=== PATIENT | male | born 1985 | race American Indian/Alaskan Native ===

== ENCOUNTER 2017-05-24 15:14 | Emergency (ER) | payer SELFPAY ==
[2017-05-24 15:41] VITALS: BP 132/86
[2017-05-24] MEDS ORDERED: Sulfamethoxazole/Trimethoprim 800-160 MG Tab PO ONE (15:46)
--- NOTE | 2017-05-25 03:23 | ER ---
DATE SEEN: 05/24/2017 CHIEF COMPLAINT: Rash. HISTORY OF PRESENT ILLNESS: This is a 31-year-old male complaining of rash that has been there for couple of weeks. Itchy worse at night involving the arms and buttock area as well. Also 2 days ago, he fell and landed on the buttock, complains of back pain. REVIEW OF SYSTEMS: No weakness of the legs. No fever. No chest pain. MEDICATIONS: Please see the nurse's notes. ALLERGIES: Please see the nurse's notes. PHYSICAL EXAMINATION: VITAL SIGNS: Blood pressure is normal, pulse is 101, and temperature 97.7. SKIN: There are multiple excoriation velásquez, rough erythematous rash diffusely noted on the arms, buttock, and legs. There are also some furuncles noted on the left leg and also in the buttock area. Low back, no obvious swelling or deformity. There is tenderness on the paraspinal muscles on the left side. Gait and station are normal. IMPRESSION: 1. Back sprain. 2. Scabies with secondary bacterial infection. PLAN: 1. Tylenol, ibuprofen for back pain. 2. Permethrin cream to apply and wash off after 8 to 12 hours. 3. Bactrim DS 1 tablet b.i.d. for secondary infection. FOLLOWUP: In the office in 1 to 2 weeks. /[id number] GINO/LISBET
== END 2017-05-24 15:45 | disposition home or self-care (01) ==
LOC: FB.ED 15:14
DX: S33.8XXA Sprain of other parts of lumbar spine and pelvis, initial encounter (principal); B86 Scabies; X58.XXXA Exposure to other specified factors, initial encounter
CPT/HCPCS: 99283; A9270

== ENCOUNTER 2017-12-21 23:22 | Emergency (ER) | payer OTHER ==
--- NOTE | 2017-12-21 23:53 | EDM.PDOC ---
ED HPI GENERAL MEDICAL PROBLEM - General Chief Complaint: General Stated Complaint: TESTICLE PAIN Time Seen by Provider: 12/21/17 23:35 Source of Information: Reports: Patient History Limitations: Reports: No Limitations - History of Present Illness INITIAL COMMENTS - FREE TEXT/NARRATIVE: Edson was sitting watching TV this pm when he arose and experienced immediate onset of sharp unconsolable pain in the LLQ, worse into the L teste. Pain is positional, worse with palpation near the inguinal ligament. Pain persisted after attempting to self treat by "blasting" himself with methamphetamine, quantity unknown. He is Hep C positive by self report. Abdominal Pain Score (Numeric/FACES): 10 - Related Data Allergies Allergy/AdvReac Type Severity Reaction Status Date / Time No Known Allergies Allergy Verified 12/21/17 23:29 Home Meds: Home Meds NK [No Known Home Meds] 12/21/17 [History] Past Medical History - Infectious Disease History Infectious Disease History: Reports: Hepatitis C - Past Surgical History HEENT Surgical History: Reports: Oral Surgery Social & Family History - Tobacco Use Smoking Status *Q: Current Every Day Smoker Years of Tobacco use: 10 Packs/Tins Daily: 1 - Caffeine Use Caffeine Use: Reports: Coffee, Energy Drinks, Soda, Tea - Alcohol Use Days Per Week of Alcohol Use: 2 Number of Drinks Per Day: 12 Total Drinks Per Week: 24 - Recreational Drug Use Recreational Drug Use: No Recreational Drug Type: Reports: Marijuana/Hashish ED ROS GENERAL - Review of Systems Review Of Systems: See Below Constitutional: Reports: No Symptoms HEENT: Reports: No Symptoms Respiratory: Reports: No Symptoms Cardiovascular: Reports: No Symptoms Endocrine: Reports: No Symptoms GI/Abdominal: Reports: Abdominal Pain, Other (pain radiating into L teste) Musculoskeletal: Reports: No Symptoms Skin: Reports: No Symptoms Neurological: Reports: No Symptoms Psychiatric: Reports: No Symptoms Hematologic/Lymphatic: Reports: No Symptoms Immunologic: Reports: No Symptoms ED EXAM, GENERAL - Physical Exam Exam: See Below Exam Limited By: No Limitations General Appearance: Alert, WD/WN, Anxious, Moderate Distress Head: Normocephalic Neck: Normal Inspection, Supple, Non-Tender Respiratory/Chest: Lungs Clear, Normal Breath Sounds, Chest Non-Tender Cardiovascular: Regular Rate, Rhythm, No Murmur GI/Abdominal: Normal Bowel Sounds, Soft, No Organomegaly, No Distention, No Mass , Tender (LLQ near inguinal ligament) (Male) Exam: Normal Inspection, Other (L inguinal tenderness) Back Exam: Normal Inspection Extremities: Normal Inspection Neurological: Alert, Oriented, CN II-XII Intact, Normal Cognition, No Motor/ Sensory Deficits Psychiatric: Normal Affect, Anxious Skin Exam: Warm, Dry, Intact Lymphatic: No Adenopathy Course - Vital Signs Text/Narrative:: Following assessment in the [facility] ED, Toradol 60 mg IM was adminsitered; an Abd- Pelvic CT wo contrast confirmed a 3 mm stone at the L UV junction, with mild hydroureter; CBC noted Hgb 16.2 gm, WBC 19,200, plts normal; BMP noted K 3.4; UA noted lg blood, 40-50 RBCs/hpf; DS positive for meth, cannabis. Edson was markedly improved at time of discharge. Last Recorded V/S: Last Vital Signs Temp 34.2 C L 12/21/17 23:31 Pulse 67 12/21/17 23:31 Resp 18 12/21/17 23:31 BP 122/99 H 12/21/17 23:31 Pulse Ox 100 12/21/17 23:31 - Orders/Labs/Meds Orders: Active Orders 24 hr Category Date Time Status Abdomen Pelvis w Cont [CT] Stat Exams 12/21/17 23:55 Stop Req Abdomen Pelvis wo Cont [CT] Stat Exams 12/22/17 00:15 Taken DRUG SCREEN, URINE ALERE [URCHEM] Stat Lab 12/22/17 00:14 Ordered URINALYSIS W/MICROSCOPIC [UA W/MICROSCOPIC] [URIN] Stat Lab 12/22/17 00:14 Ordered Labs: Laboratory Tests 12/22/17 12/22/17 12/22/17 Range/Units 00:12 00:12 00:14 WBC 19.2 H (4.5-12.0) X10-3/uL RBC 5.27 (4.30-5.75) x10(6)uL Hgb 16.2 H (11.5-15.5) g/dL Hct 47.9 (30.0-51.3) % MCV 90.9 (80-96) fL MCH 30.8 (27.7-33.6) pg MCHC 33.8 (32.2-35.4) g/dL RDW 13.0 (11.5-15.5) % Plt Count 388 H (125-369) X10(3)uL MPV 7.6 (7.4-10.4) fL Add Manual Diff Yes Neutrophils % (Manual) 93 H (46-82) % Lymphocytes % (Manual) 4 L (13-37) % Monocytes % (Manual) 3 L (4-12) % Sodium 138 (135-145) mmol/L Potassium 3.4 L (3.5-5.3) mmol/L Chloride 100 (100-110) mmol/L Carbon Dioxide 26 (21-32) mmol/L BUN 16 (7-18) mg/dL Creatinine 1.3 (0.70-1.30) mg/dL Est Cr Clr Drug Dosing 89.54 mL/min Estimated GFR (MDRD) > 60 (>60) BUN/Creatinine Ratio 12.3 (9-20) Glucose 114 (80-116) mg/dL Calcium 9.6 (8.6-10.2) mg/dL Urine Color Yellow (YELLOW) Urine Appearance Slightly cloudy (CLEAR) Urine pH 7.0 H (5.0-6.5) Ur Specific [place] 1.015 (1.010-1.025) Urine Protein Negative (NEGATIVE) mg/dL Urine Glucose (UA) Normal (NEGATIVE) mg/dL Urine Ketones Negative (NEGATIVE) mg/dL Urine Occult Blood Large H (NEGATIVE) Urine Nitrite Negative (NEGATIVE) Urine Bilirubin Negative (NEGATIVE) Urine Urobilinogen 1 H (NEGATIVE) mg/dL Ur Leukocyte Esterase Negative (NEGATIVE) Urine RBC 40-50 H (0) Urine WBC 0-5 (0) Ur Squamous Epith Cells Rare (NS,R,O) Amorphous Sediment Few Urine Bacteria Few H (NS) Urine Mucus Few H (NS) Urine Opiates Screen (NEGATIVE) Ur Oxycodone Screen (NEGATIVE) Ur Propoxyphene Screen (NEGATIVE) Ur Barbituates Screen (NEGATIVE) Ur Tricyclics Screen (NEGATIVE) Ur Phencyclidine Scrn (NEGATIVE) Ur Amphetamine Screen (NEGATIVE) Urine MDMA Screen (NEGATIVE) U Benzodiazepines Scrn (NEGATIVE) U Cocaine Metab Screen (NEGATIVE) U Marijuana (THC) Screen (NEGATIVE) 12/22/17 Range/Units 00:14 WBC (4.5-12.0) X10-3/uL RBC (4.30-5.75) x10(6)uL Hgb (11.5-15.5) g/dL Hct (30.0-51.3) % MCV (80-96) fL MCH (27.7-33.6) pg MCHC (32.2-35.4) g/dL RDW (11.5-15.5) % Plt Count (125-369) X10(3)uL MPV (7.4-10.4) fL Add Manual Diff Neutrophils % (Manual) (46-82) % Lymphocytes % (Manual) (13-37) % Monocytes % (Manual) (4-12) % Sodium (135-145) mmol/L Potassium (3.5-5.3) mmol/L Chloride (100-110) mmol/L Carbon Dioxide (21-32) mmol/L BUN (7-18) mg/dL Creatinine (0.70-1.30) mg/dL Est Cr Clr Drug Dosing mL/min Estimated GFR (MDRD) (>60) BUN/Creatinine Ratio (9-20) Glucose (80-116) mg/dL Calcium (8.6-10.2) mg/dL Urine Color (YELLOW) Urine Appearance (CLEAR) Urine pH (5.0-6.5) Ur Specific [place] (1.010-1.025) Urine Protein (NEGATIVE) mg/dL Urine Glucose (UA) (NEGATIVE) mg/dL Urine Ketones (NEGATIVE) mg/dL Urine Occult Blood (NEGATIVE) Urine Nitrite (NEGATIVE) Urine Bilirubin (NEGATIVE) Urine Urobilinogen (NEGATIVE) mg/dL Ur Leukocyte Esterase (NEGATIVE) Urine RBC (0) Urine WBC (0) Ur Squamous Epith Cells (NS,R,O) Amorphous Sediment Urine Bacteria (NS) Urine Mucus (NS) Urine Opiates Screen Negative (NEGATIVE) Ur Oxycodone Screen Negative (NEGATIVE) Ur Propoxyphene Screen Negative (NEGATIVE) Ur Barbituates Screen Negative (NEGATIVE) Ur Tricyclics Screen Negative (NEGATIVE) Ur Phencyclidine Scrn Negative (NEGATIVE) Ur Amphetamine Screen Positive H (NEGATIVE) Urine MDMA Screen Negative (NEGATIVE) U Benzodiazepines Scrn Negative (NEGATIVE) U Cocaine Metab Screen Negative (NEGATIVE) U Marijuana (THC) Screen Positive H (NEGATIVE) Meds: Medications Discontinued Medications Generic Name Dose Route Start Last Admin Trade Name Freq PRN Reason Stop Dose Admin Ketorolac Tromethamine 60 mg 12/21/17 23:54 12/22/17 00:05 Toradol IM 12/21/17 23:55 60 mg ONETIME ONE Administration Departure - Departure Time of Disposition: 00:52 Disposition: Home, Self-Care 01 Condition: Good Clinical Impression: Ureterolithiasis - Discharge Information Instructions: Kidney Stones, [id number] Referrals: PCP,None [Primary Care Provider] - Forms: ED Department Discharge Additional Instructions: see your pcp - Problem List & Annotations (1) Methamphetamine abuse SNOMED Code(s): 350776343 Code(s): F15.10 - OTHER STIMULANT ABUSE, UNCOMPLICATED Status: Acute Current Visit: Yes Annotation/Comment:: I advised CD evaluation and treatment (2) Cannabis abuse SNOMED Code(s): 69270294 Code(s): F12.10 - CANNABIS ABUSE, UNCOMPLICATED Status: Acute Current Visit: Yes Annotation/Comment:: I advised CD evaluation and treatment (3) Ureterolithiasis SNOMED Code(s): 16660501 Code(s): N20.1 - CALCULUS OF URETER Status: Acute Current Visit: Yes Annotation/Comment:: I dispensed a strainer, advised hydration - Problem List Review Problem List Initiated/Reviewed/Updated: Yes - My Orders Last 24 Hours: My Active Orders 12/21/17 23:55 Abdomen Pelvis w Cont [CT] Stat 12/22/17 00:14 DRUG SCREEN, URINE ALERE [URCHEM] Stat URINALYSIS W/MICROSCOPIC [UA W/MICROSCOPIC] [URIN] Stat 12/22/17 00:15 Abdomen Pelvis wo Cont [CT] Stat - Assessment/Plan Last 24 Hours: My Active Orders 12/21/17 23:55 Abdomen Pelvis w Cont [CT] Stat 12/22/17 00:14 DRUG SCREEN, URINE ALERE [URCHEM] Stat URINALYSIS W/MICROSCOPIC [UA W/MICROSCOPIC] [URIN] Stat 12/22/17 00:15 Abdomen Pelvis wo Cont [CT] Stat Plan: Follow up with PCP.
[2017-12-21] MEDS ORDERED: Ketorolac 60 MG/2 ML SDV IM ONE (23:54)
[2017-12-22 00:54] VITALS: BP 121/89
== END 2017-12-22 00:55 | disposition home or self-care (01) ==
LOC: FB.ED 23:22
DX: N13.2 Hydronephrosis with renal and ureteral calculous obstruction (principal); F17.210 Nicotine dependence, cigarettes, uncomplicated
CPT/HCPCS: 36415; 74176; 80048; 80305; 81001; 85025; 96372; 99284; J1885